=== PATIENT | female | born 1985 | race Caucasian/White ===

== ENCOUNTER 2020-09-13 13:15 | Emergency (ER) | payer OTHER, SELFPAY ==
[2020-09-13 13:17] VITALS: BP 157/102; PULSE 116; RESP 20; TEMP 36; O2SAT 96; BMI 51.8
[2020-09-13 13:36] VITALS: BP 162/93
--- NOTE | 2020-09-13 13:44 | NURSING ---
NO OLD EKGS
--- NOTE | 2020-09-13 14:15 | ED.VIS.GEN ---
History of Present Illness Chief Complaint: Dizziness Narrative: Patient feels lightheaded. She feels lightheaded when she stands up and she felt lightheaded during the shower. She has no vertigo she has no disequilibrium she has no headache or vision changes. She had some nausea associated with this. No fever chills cough or congestion. She denies any abdominal pain. She is a diabetic and is complaining of polyuria recently. Past medical history: Diabetes Medications: Reviewed Social history: Noncontributory Review of systems: All systems negative except as indicated General: Denies: Fever, endorses lightheadedness. Eyes: Denies: Visual changes - bilaterally ENT: Denies: Rhinorrhea, Sore throat Cardiovascular: Denies: Chest pain Respiratory: Denies: Dyspnea, Cough Gastrointestinal: Denies: Abdominal pain, she had some nausea with the lightheadedness which resolved Genitourinary: Denies: Dysuria Musculoskeletal: Denies: Myalgias Skin: Denies: Rash Neurological: Denies: Headache, no focal weakness, no vision changes, no vertigo or disequilibrium Psych: Reports: negative Hematologic: Denies: Easy bruising, Easy bleeding Physical exam General: Well nourished, Well developed, No Acute Distress Head: Normocephalic, Atraumatic Eyes: Conjunctiva not pale ENT: Somewhat dry mucous membranes Neck: Supple, Nontender, No lymphadenopathy Cardiovascular: Regular rate, Regular rhythm Respiratory: No distress, CTA bilaterally Abdomen: Soft, Nontender, Nondistended Back: Nontender, Normal Inspection. Negative for: CVA tenderness Extremities: Nontender, No edema Skin: Normal color, No rash Neurological: Alert, Normal Strength, Normal Sensation. Normal cerebellar exam including Romberg. Psychological: Normal affect Past Medical History - Allergies and Home Meds Allergies/Adverse Reactions: Allergies No Known Allergies Allergy (Verified 09/13/20 13:15) Primary Care Physician: Giovanna Cisneros MD [Primary Care Provider] - Smoking Status: Never smoker Physical Exam Vital Signs/Narrative: Vital Signs Temp Pulse Resp BP Pulse Ox 09/13/20 13:36 162/93 H 09/13/20 13:17 96.8 F L 116 H 20 H 157/102 H 96 Diagnostic/Tx/Re-eval - Rhythm Strip Rhythm Strip: Sinus Rhythm Rate: 100 Ectopy: None - EKG Initial EKG Interpretation: - - Sinus rhythm with a rate of 100. Normal MN and QTc intervals. No ischemic changes. Normal EKG Interpreted by emergency doctor - Medical Decision Making Patient is lightheaded, she has a normal neurological exam. She has a normal Romberg test and I went back to reevaluate her as well as normal cerebellar. She does endorse polyuria polydipsia, this is likely all secondary to dehydration however I will order blood work including basic metabolic panel so I can see the electrolytes as well as the blood glucose. She will be hydrated with IV fluids. Care of the patient will be turned over to the oncoming ED physician. ED Disposition - Plan for ED Patient: Disposition: Home or Assisted Living Diagnosis: Lightheaded, Dehydration, Hyperglycemia Referrals: Giovanna Cisneros MD [Primary Care Provider] -
[2020-09-13 14:25] LABS: Absolute Lymphocyte Count 2.59 X10^3/uL (0.83-4.51); Absolute Neutrophil Count 5.2 X10^3/uL (2.0-7.7); Basophil# 0.03 X10^3/uL; Basophil% 0.3 % (0-1); Eosinophil# 0.27 X10^3/uL; Eosinophils% 3.1 % (0-5); Hematocrit 42.9 % (37-47); Lymphocyte # 2.59 X10^3/ul (4.0); Lymphocyte % 30.1 % (19-41); Mean Corp Hgb Conc 32.6 g/dL (32-36); Mean Corpuscular Hgb 27.4 pg (27.0-32.0); Mean Platelet Vol. 9.9 fl (6.2-12.0); Monocyte# 0.53 X10^3/uL; Monocyte% 6.2 % (0-10); NRBC Flagged by Analyzer 0 % (0-5); Neutrophil # 5.18 X10^3/uL (2.7-7.7); Neutrophil % 60.2 % (47-70); Platelet Count 270 K/mm3 (150-450); RBC Distribution Width CV 13.2 % (11.6-14.6); RBC Distribution Width SD 40.4 fl (35.1-43.9); Red Blood Count 5.11 M/mm3 (4.2-5.4); White Blood Count 8.6 K/mm3 (4.4-11.0)
[2020-09-13 14:42] LABS: ALB/GLOB Ratio 1.1 RATIO (0.9-2.4); AST(SGOT) 10 U/L (15-37); Alanine Aminotransfer ALT/SGPT 31 U/L (13-56); Albumin, Serum 3.8 g/dL (3.2-5.0); Alkaline Phosphatase 80 U/L (45-117); Anion Gap 7 (5-15); BUN 9 mg/dL (7-18); BUN/Creat Ratio 11.9 RATIO (10-20); Calcium,Total 8.9 mg/dL (8.5-10.1); Chloride 105 mmol/L (98-107); Creatinine, Serum 0.76 mg/dL (0.55-1.02); EST Glomerular Filtration Rate 92 mL/min (>60); Est Glom Filt Rate - Afr Amer 111 mL/min (>60); Globulin 3.6 g/dL (2.2-4.2); Glucose 206 mg/dL (74-106); Potassium 3.7 mmol/L (3.5-5.1); Protein, Total 7.4 g/dL (6.4-8.2); Sodium Level 139 mmol/L (136-145)
[2020-09-13] MEDS: 0.9% Normal Saline 1,000 ML 1000 ML IV (14:50)
[2020-09-13 15:08] VITALS: BP 128/68; PULSE 85; RESP 22; O2SAT 95
[2020-09-13 15:31] LABS: Color, Urine Yellow (Yellow); Glucose, Dipstick 100 mg/dl (Normal); Ketone-Dipstick 5 mg/dl (Negative); Leukocyte Esterase-Dipstick 25 /ul (Negative); Mucous, Urine 0 SEEN /hpf (<or=2+); Nitrite-Dipstick Negative (Negative); Occult Blood-Urine Negative /ul (Negative); Protein-Dipstick 15 mg/dl (Negative); Red Blood Cells-Urine 0 SEEN /hpf (0-5); Specific Gravity, Urine 1.025 (1.002-1.030); Urine Bilirubin Dipstick Negative (Negative); Urine Clarity Clear (Clear); Urine Urobilinogen Normal (Normal)
[2020-09-13 15:45] LABS: Bacteria RARE /hpf (None Seen); Squamous Epithelial Cells - UA 0-5 SEEN /hpf (5-10); White Blood Cells 0-5 SEEN /hpf (0-5)
== END 2020-09-13 17:08 | disposition home or self-care (01) ==
PROVIDERS: Emergency Provider Emergency Medicine; PCP Internal Medicine
DX: E86.0 Dehydration (principal); E11.65 Type 2 diabetes mellitus with hyperglycemia; Z79.84 Long term (current) use of oral hypoglycemic drugs
CPT/HCPCS: 80053; 81001; 84484; 85025; 93005; 96360; 96361; 99285; J7030; A4216

== ENCOUNTER 2025-02-21 17:15 | Emergency (ER) | payer OTHER, SELFPAY ==
[2025-02-21] VITALS (7 sets, daily range): BP systolic 160–185; BP diastolic 97–123; PULSE 73–99; RESP 12–20; TEMP 36.2–36.7; O2SAT 95–98; BMI 50.2
--- NOTE | 2025-02-21 17:44 | CT_ITS ---
PROCEDURE: BRAIN/HEAD WITHOUT CONTRAST 02/21/2025 REASON FOR EXAM: HEADACHE WITH HYPERTENSION TECHNIQUE: BRAIN/HEAD WITHOUT CONTRAST Coronal and Sagittal reconstruction series were provided. One or more dose reduction techniques were used (e.g., Automated exposure control, adjustment of the mA and/or kV according to patient size, use of iterative reconstruction technique. RADIATION DOSE SUMMARY: CTDlvol: 45 mGy DLP: 813 mGycm COMPARISON: None FINDINGS: Brain: No acute intracranial hemorrhage, mass effect, or midline shift. CSF Spaces: Unremarkable for age Sinuses/Mastoids: Mucosal secretions with air-fluid levels in the maxillary sinuses. Scattered opacification of the ethmoid air cells. No mastoid effusion. Bones: No displaced calvarial fracture. CT/Brain/Head without Contrast IMPRESSION: 1. No acute intracranial abnormality. 2. Maxillary sinus disease, correlate for clinical evidence of acute sinusitis . Reading Location: [id number]
--- NOTE | 2025-02-21 17:44 | CT_ITS ---
PROCEDURE: BRAIN/HEAD WITHOUT CONTRAST 02/21/2025 REASON FOR EXAM: HEADACHE WITH HYPERTENSION TECHNIQUE: BRAIN/HEAD WITHOUT CONTRAST Coronal and Sagittal reconstruction series were provided. One or more dose reduction techniques were used (e.g., Automated exposure control, adjustment of the mA and/or kV according to patient size, use of iterative reconstruction technique. RADIATION DOSE SUMMARY: CTDlvol: 45 mGy DLP: 813 mGycm COMPARISON: None FINDINGS: Brain: No acute intracranial hemorrhage, mass effect, or midline shift. CSF Spaces: Unremarkable for age Sinuses/Mastoids: Mucosal secretions with air-fluid levels in the maxillary sinuses. Scattered opacification of the ethmoid air cells. No mastoid effusion. Bones: No displaced calvarial fracture. CT/Brain/Head without Contrast IMPRESSION: 1. No acute intracranial abnormality. 2. Maxillary sinus disease, correlate for clinical evidence of acute sinusitis . Reading Location: [id number]
--- NOTE | 2025-02-21 17:47 | EDS_ITS ---
HPI History of Present Illness Chief Complaint: Hypertension Informant: patient Onset/Context/Timing Onset: Weeks Context: Gradual Onset Timing: Continuous Current Severity: Mild Maximum Severity: Mild Narrative Narrative: 39-year-old female history of hypertension diabetes. She has been on hydrochlorothiazide 25 mg once a day for years. States recently she has had a viral URI has been taking fedv-eeu-agflcux cough medication and her blood pressure has been elevated for last 2 weeks. Today was seen in urgent care pressure was 180/130 she has had intermittent headaches and a sitter in the emergency department be evaluated. She is on no blood thinners. Denies any fall or head trauma. Prior similar symptoms: Yes Recent Illness/Hospitalization: No [facility] Medical History QUAN (obstructive sleep apnea) HTN (hypertension) [place] PCOS (polycystic ovarian syndrome) Diabetes Anxiety Depression Home Medications ?Medication ?Instructions ?Recorded ?Last Taken ?Type glimepiride 2 mg tablet 1 mg PO DAILY 04/05/15 Unkno wn History melatonin 3 mg-pyridoxine (vitamin 1 ea PO QHS 5 Unknown History B6) 2 mg tablet amoxicillin 875 mg-potassium 1 tab PO BID 02/21/25 Unk nown History clavulanate 125 mg tablet benzonatate 100 mg capsule 200 mg PO TID PRN PRN cough 02/21/25 Unknown History buspirone 15 mg tablet 15 mg PO BID 02/21/25 Unknow n History diclofenac sodium 75 mg 75 mg PO BID 02/21/25 Unknow n History tablet,delayed release hydrochlorothiazide 25 mg tablet 25 mg PO DAILY Unknown History paroxetine HCl 20 mg tablet 20 mg PO DAILY 02/21/25 Un known History ropinirole 0.5 mg tablet 0.5 mg PO QHS 02/21/25 Unkno wn History trazodone 100 mg tablet 150 mg PO QHS 02/21/25 Unkno wn History Allergy/AdvReac Type Severity Reaction Status Date / Time No Known Allergies Allergy Verified 02/21/25 17:15 Social History Smoking Status: Never smoker ROS ROS ED ROS Narrative Cough. Headaches. Constitutional Constitutional ED: Denies chills or fever(s) Eyes Eyes: Denies blurry vision ENT ENT ED: Denies ear pain Cardiovascular Cardiovascular: Denies chest pain Respiratory/Chest Respiratory/Chest: Reports cough and sputum Gastrointestinal Gastrointestinal: Denies abdominal pain Genitourinary Genitourinary ED: Denies dysuria or hematuria Musculoskeletal Musculoskeletal: Denies arthralgias or back pain Integumentary Denies abscess or Abrasions Neurologic Neurologic: Reports headache(s) Psychiatric Psychiatric: Denies anxiety or depression Endocrine Endocrinology: Denies cold intolerance Hematologic/Lymphatic Hematologic/Lymphatic: Reports none Allergic/Immunologic Allergic/Immunologic ED: Denies mouth swelling, tongue swelling or urticaria EXAM Physical Exam Narrative Exam Narrative: 39-year-old female sitting upright in bed. Initial blood pressure 185/123 rechecked 167/115. Otherwise vital signs stable afebrile. Pulse ox 90% on room air no hypoxia. She is in no distress. H EENT exam pupils round react light. No facial droop. Moist mucous membranes. No speech. Face and scalp nontender. Neck nontender no meningismus. No lymphadenopathy. Back nontender. Lungs clear to auscultation bilaterally. No rales rhonchi or wheezing. Equal symmetr ical. Heart regular rhythm rate about 90 no murmur. Chest wall ribs nontender. Abdomen soft nontender. Moving all 4 extremities. 5 of 5 flow manager strength. Dorsi plantarflexion intact. Neurologic exam she is awake alert. Answering questions and following commands. NIH 0. Const Vital Signs:
--- NOTE | 2025-02-21 17:47 | EDS_ITS ---
HPI History of Present Illness Chief Complaint: Hypertension Informant: patient Onset/Context/Timing Onset: Weeks Context: Gradual Onset Timing: Continuous Current Severity: Mild Maximum Severity: Mild Narrative Narrative: 39-year-old female history of hypertension diabetes. She has been on hydrochlorothiazide 25 mg once a day for years. States recently she has had a viral URI has been taking jebs-qao-sgtahhc cough medication and her blood pressure has been elevated for last 2 weeks. Today was seen in urgent care pressure was 180/130 she has had intermittent headaches and a sitter in the emergency department be evaluated. She is on no blood thinners. Denies any fall or head trauma. Prior similar symptoms: Yes Recent Illness/Hospitalization: No [facility] Medical History QUAN (obstructive sleep apnea) HTN (hypertension) [place] PCOS (polycystic ovarian syndrome) Diabetes Anxiety Depression Home Medications ?Medication ?Instructions ?Recorded ?Last Taken ?Type glimepiride 2 mg tablet 1 mg PO DAILY 04/05/15 Unkno wn History melatonin 3 mg-pyridoxine (vitamin 1 ea PO QHS 5 Unknown History B6) 2 mg tablet amoxicillin 875 mg-potassium 1 tab PO BID 02/21/25 Unk nown History clavulanate 125 mg tablet benzonatate 100 mg capsule 200 mg PO TID PRN PRN cough 02/21/25 Unknown History buspirone 15 mg tablet 15 mg PO BID 02/21/25 Unknow n History diclofenac sodium 75 mg 75 mg PO BID 02/21/25 Unknow n History tablet,delayed release hydrochlorothiazide 25 mg tablet 25 mg PO DAILY Unknown History paroxetine HCl 20 mg tablet 20 mg PO DAILY 02/21/25 Un known History ropinirole 0.5 mg tablet 0.5 mg PO QHS 02/21/25 Unkno wn History trazodone 100 mg tablet 150 mg PO QHS 02/21/25 Unkno wn History Allergy/AdvReac Type Severity Reaction Status Date / Time No Known Allergies Allergy Verified 02/21/25 17:15 Social History Smoking Status: Never smoker ROS ROS ED ROS Narrative Cough. Headaches. Constitutional Constitutional ED: Denies chills or fever(s) Eyes Eyes: Denies blurry vision ENT ENT ED: Denies ear pain Cardiovascular Cardiovascular: Denies chest pain Respiratory/Chest Respiratory/Chest: Reports cough and sputum Gastrointestinal Gastrointestinal: Denies abdominal pain Genitourinary Genitourinary ED: Denies dysuria or hematuria Musculoskeletal Musculoskeletal: Denies arthralgias or back pain Integumentary Denies abscess or Abrasions Neurologic Neurologic: Reports headache(s) Psychiatric Psychiatric: Denies anxiety or depression Endocrine Endocrinology: Denies cold intolerance Hematologic/Lymphatic Hematologic/Lymphatic: Reports none Allergic/Immunologic Allergic/Immunologic ED: Denies mouth swelling, tongue swelling or urticaria EXAM Physical Exam Narrative Exam Narrative: 39-year-old female sitting upright in bed. Initial blood pressure 185/123 rechecked 167/115. Otherwise vital signs stable afebrile. Pulse ox 90% on room air no hypoxia. She is in no distress. H EENT exam pupils round react light. No facial droop. Moist mucous membranes. No speech. Face and scalp nontender. Neck nontender no meningismus. No lymphadenopathy. Back nontender. Lungs clear to auscultation bilaterally. No rales rhonchi or wheezing. Equal symmetr ical. Heart regular rhythm rate about 90 no murmur. Chest wall ribs nontender. Abdomen soft nontender. Moving all 4 extremities. 5 of 5 lpn rn hospice strength. Dorsi plantarflexion intact. Neurologic exam she is awake alert. Answering questions and following commands. NIH 0. Const Vital Signs:
--- NOTE | 2025-02-21 17:47 | EX.ED.DYSGE1 ---
HPI History of Present Illness Chief Complaint: Hypertension Informant: patient Onset/Context/Timing Onset: Weeks Context: Gradual Onset Timing: Continuous Current Severity: Mild Maximum Severity: Mild Narrative Narrative: 39-year-old female history of hypertension diabetes. She has been on hydrochlorothiazide 25 mg once a day for years. States recently she has had a viral URI has been taking neec-dnt-xhusrdq cough medication and her blood pressure has been elevated for last 2 weeks. Today was seen in urgent care pressure was 180/130 she has had intermittent headaches and a sitter in the emergency department be evaluated. She is on no blood thinners. Denies any fall or head trauma. Prior similar symptoms: Yes Recent Illness/Hospitalization: No [facility] Medical History QUAN (obstructive sleep apnea) HTN (hypertension) [place] PCOS (polycystic ovarian syndrome) Diabetes Anxiety Depression Home Medications ?Medication ?Instructions ?Recorded ?Last Taken ?Type glimepiride 2 mg tablet 1 mg PO DAILY 04/05/15 Unknown History melatonin 3 mg-pyridoxine (vitamin 1 ea PO QHS 04/05/15 Unknown History B6) 2 mg tablet amoxicillin 875 mg-potassium 1 tab PO BID 02/21/25 Unknown History clavulanate 125 mg tablet benzonatate 100 mg capsule 200 mg PO TID PRN PRN cough 02/21/25 Unknown History buspirone 15 mg tablet 15 mg PO BID 02/21/25 Unknown History diclofenac sodium 75 mg 75 mg PO BID 02/21/25 Unknown History tablet,delayed release hydrochlorothiazide 25 mg tablet 25 mg PO DAILY 02/21/25 Unknown History paroxetine HCl 20 mg tablet 20 mg PO DAILY 02/21/25 Unknown History ropinirole 0.5 mg tablet 0.5 mg PO QHS 02/21/25 Unknown History trazodone 100 mg tablet 150 mg PO QHS 02/21/25 Unknown History Allergy/AdvReac Type Severity Reaction Status Date / Time No Known Allergies Allergy Verified 02/21/25 17:15 Social History Smoking Status: Never smoker ROS ROS ED ROS Narrative Cough. Headaches. Constitutional Constitutional ED: Denies chills or fever(s) Eyes Eyes: Denies blurry vision ENT ENT ED: Denies ear pain Cardiovascular Cardiovascular: Denies chest pain Respiratory/Chest Respiratory/Chest: Reports cough and sputum Gastrointestinal Gastrointestinal: Denies abdominal pain Genitourinary Genitourinary ED: Denies dysuria or hematuria Musculoskeletal Musculoskeletal: Denies arthralgias or back pain Integumentary Denies abscess or Abrasions Neurologic Neurologic: Reports headache(s) Psychiatric Psychiatric: Denies anxiety or depression Endocrine Endocrinology: Denies cold intolerance Hematologic/Lymphatic Hematologic/Lymphatic: Reports none Allergic/Immunologic Allergic/Immunologic ED: Denies mouth swelling, tongue swelling or urticaria EXAM Physical Exam Narrative Exam Narrative: 39-year-old female sitting upright in bed. Initial blood pressure 185/123 rechecked 167/115. Otherwise vital signs stable afebrile. Pulse ox 90% on room air no hypoxia. She is in no distress. H EENT exam pupils round react light. No facial droop. Moist mucous membranes. No speech. Face and scalp nontender. Neck nontender no meningismus. No lymphadenopathy. Back nontender. Lungs clear to auscultation bilaterally. No rales rhonchi or wheezing. Equal symmetrical. Heart regular rhythm rate about 90 no murmur. Chest wall ribs nontender. Abdomen soft nontender. Moving all 4 extremities. 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 Dorsi plantarflexion intact. Neurologic exam she is awake alert. Answering questions and following commands. NIH 0. Const Vital Signs: 02/21/25 17:16 02/21/25 17:32 02/21/25 17:35 Temperature 97.2 F L 97.8 F Temperature Source Temporal Oral Pulse Rate 99 91 Respiratory Rate 20 H 12 Respiratory Effort Normal Respiratory Pattern Normal Blood Pressure 185/123 H 167/115 H Blood Pressure Mean 143 132 Pulse Ox 98 97 Oxygen Delivery Method Room Air Room Air 02/21/25 19:11 02/21/25 19:15 02/21/25 19:30 Temperature 97.9 F Temperature Source Oral Pulse Rate 73 75 74 Respiratory Rate 17 18 18 Respiratory Effort Respiratory Pattern Blood Pressure 165/100 H 160/103 H 163/97 H Blood Pressure Mean 121 122 119 Pulse Ox 96 95 95 Oxygen Delivery Method Room Air Room Air Room Air 02/21/25 19:45 Temperature Temperature Source Pulse Rate 75 Respiratory Rate 18 Respiratory Effort Respiratory Pattern Blood Pressure 165/107 H Blood Pressure Mean 126 Pulse Ox 96 Oxygen Delivery Method Room Air Positive well nourished and well developed; Negative for cachectic, contractures or unkempt General Appearance ED: well developed and NAD; Negative for unkempt, cachectic, contractures, cyanotic, diaphoretic or pallor Nutritional Appearance: Negative for cachectic HEENT Reports moist mucous membranes Eyes PERRL and EOMs intact bilaterally Neck no lymphadenopathy, supple and no JVD Chest Wall inspection of chest normal and palpation of chest normal Resp normal respiratory effort and clear to auscultation bilaterally Cardio regular rate, regular rhythm, S1 normal heart sound, S2 normal heart sound and no murmurs GI normal to inspection, nondistended, normoactive bowel sounds, non-tender, non-distended and no masses Auscultation: normoactive bowel sounds Palpation: soft; Negative for tender, guarding or rebound tenderness present Back/Spine no CVA tenderness Extremity normal to inspection General Extremety ED: Negative for edema or tenderness General Extremity: Negative for edema Neuro oriented x3 and CN's II-XII intact bilaterally Sensorium / Orientation: alert; Negative for orientation impaired, lethargic or stuporous Motor Exam: strength 5/5 throughout; Negative for general weakness or strength abnormal Psych mental status grossly normal Appearance: Negative for unkempt Mood & Affect: Negative for depressed, anxious or tearful Skin no rashes or lesions noted and no wounds General Skin Exam: Negative for jaundice or pallor Lesions: No lesion noted Rashes: No rashes noted Trauma: Negative for abrasion Wounds: Negative for wounds noted MDM MDM MDM Narrative Medical decision making narrative: 39-year-old diabetic female with viral URI. Recent cough medication. Acute on chronic hypertension with headaches. CT of her brain will be obtained. Screening labs evaluate her kidney function and her blood sugar. Exam is pretty benign. She will be given Lopressor to try to decrease her blood pressure. Repeat exam patient is doing well at 8:05 PM. CAT scan of the brain was read as no acute process. No bleed by the radiologist reviewed by me. Patient's comfortably and discharged to home. Current blood pressure is 165/100. She is going to come off all of the nfgr-ghz-lwmoxuq cold medications. Continue her current blood pressure medication. Log her blood pressures twice daily and follow-up with her primary care physician. History & Record Review Discussion w/independent historian: Patient Additional record(s) reviewed:: Prior inpatient record, Prior outpatient record, Prior ED visit and Prior labs Lab Data Attestation: I reviewed the patient's lab results. Lab results narrative: CBC shows a white count Wayne 0.2. H&H 15 and 44. Platelets 281. Chemistry shows sodium 138 gap 13. BUN is 7 creatinine 0.6. Glucose 150. CT brain no acute abnormality. Labs: Laboratory Results - last 24 hr 02/21/25 18:05 WBC 11.2 H RBC 5.38 Hgb 15.6 H Hct 44.9 MCV 83.5 MCH 29.0 MCHC 34.7 RDW Std Deviation 38.2 RDW Coeff of Aidan 12.7 Plt Count 281 MPV 9.3 Immature Gran % (Auto) 0.700 Neut % (Auto) 64.8 Lymph % (Auto) 25.1 [place] % (Auto) 6.0 Eos % (Auto) 3.0 Baso % (Auto) 0.4 Absolute Neuts (auto) 7.3 Absolute Lymphs (auto) 2.82 Nucleated RBC % 0 Sodium 138 Potassium 3.9 Chloride 98 Carbon Dioxide 27.4 Anion Gap 13 BUN 7 Creatinine 0.67 L Estim Creat Clear Calc 182.57 Est GFR (MDRD) Non-Af 112 BUN/Creatinine Ratio 10.3 Glucose 150 H Calcium 9.4 Radiography Diagnostic Testing: Clinical Impression(s) from Imaging Studies Brain CT 02/21/25 17:44 IMPRESSION: 1. No acute intracranial abnormality. 2. Maxillary sinus disease, correlate for clinical evidence of acute sinusitis. Reading Location: [facility] Discharge Plan Triage Chief Complaint: Hypertension ED Provider: Kel Sam Dx/Rx/DC Orders Clinical Impression: Hypertension, History of diabetes mellitus, Viral URI Instructions: ED Hypertension, Established Prescriptions: No Action glimepiride 2 MG tablet 1 mg PO DAILY Patient Comments: melatonin-pyridoxine (vit B6) 1 EACH tablet 1 ea PO QHS benzonatate 100 mg capsule 200 mg PO TID PRN PRN (Reason: cough) amoxicillin-pot clavulanate 875-125 mg tablet 1 tab PO BID trazodone 100 mg tablet 150 mg PO QHS paroxetine HCl 20 mg tablet 20 mg PO DAILY ropinirole 0.5 mg tablet 0.5 mg PO QHS diclofenac sodium 75 mg tablet,delayed release (DR/EC) 75 mg PO BID hydrochlorothiazide 25 mg tablet 25 mg PO DAILY buspirone 15 mg tablet 15 mg PO BID Primary Care Provider: Giovanna Cisneros Referrals: Giovanna Cisneros MD [Primary Care Provider] - 3-5 Days Activity Restrictions/Additional Instructions: Stop all of the vwhd-qzg-ggasbcw cold medications they may be increasing your blood pressure. Take your blood pressure medication as prescribed. Log your blood pressures twice daily after breakfast and after dinner when you are calm and relaxed. Show those readings to your primary care physician when you see them in 3 to 7 days. Print Language: Frisian Disposition Disposition: Home, Self Care
[2025-02-21 18:16] LABS: Hematocrit 44.9 % (37-47); Hemoglobin 15.6 g/dL (12.0-15.0); Immature Granulocytes Count 0.080 X10^3/uL (0.0-0.0); Mean Corp Hgb Conc 34.7 g/dL (32-36); Mean Corpuscular Volume 83.5 fL (81-99); Mean Platelet Vol. 9.3 fl (6.2-12.0); NRBC Flagged by Analyzer 0 % (0-5); Platelet Count 281 K/mm3 (150-450); RBC Distribution Width CV 12.7 % (11.6-14.6); RBC Distribution Width SD 38.2 fl (35.1-43.9); Red Blood Count 5.38 M/mm3 (4.2-5.4); White Blood Count 11.2 K/mm3 (4.4-11.0)
[2025-02-21 18:43] LABS: Anion Gap 13 (5-15); BUN 7 mg/dL (4-19); BUN/Creat Ratio 10.3 RATIO (10-20); Calcium,Total 9.4 mg/dL (7.6-11.0); Carbon Dioxide 27.4 mmol/L (21.0-32.0); Chloride 98 mmol/L (98-108); Estimated Creatinine Clearance 182.57 ml/min (50-250); Glucose 150 mg/dL (70-99); Potassium 3.9 mmol/L (3.3-5.1)
== END 2025-02-21 20:11 | disposition home or self-care (01) ==
PROVIDERS: Emergency Provider Emergency Medicine; PCP Internal Medicine; Visit Provider Emergency Medicine
DX: I10 Essential (primary) hypertension (principal); E11.9 Type 2 diabetes mellitus without complications; J06.9 Acute upper respiratory infection, unspecified; Z79.84 Long term (current) use of oral hypoglycemic drugs; Z79.899 Other long term (current) drug therapy
CPT/HCPCS: 70450; 80048; 85025; 96374; 99284